=== PATIENT | male | born 1940 | race Caucasian/White ===

== ENCOUNTER 2020-05-31 10:13 | Emergency (ER) | payer MEDICARE ==
[2020-05-31 10:52] LABS: #Basophils 0.1 thou/uL (0.0-0.2); #Lymphocytes 0.4 thou/uL (1.20-3.40); #Neutrophils 14.4 thou/uL (1.40-6.50); %Basophils 0.5 % (0.0-1.0); %Lymphocytes 2.7 % (21.0-51.0); %Monocytes 6.2 % (0.0-10.0); %Neutrophils 90.6 % (42.0-75.0); Mean Corpuscular HGB CONC 34.8 g/dL (32.0-36.0); Mean Corpuscular Hemoglobin 31.2 pg (27.0-31.0); Mean Corpuscular Volume 89.7 fL (78.0-98.0); Mean Platelet Volume 5.9 fL (7.4-10.4); Platelet Count 363 thou/uL (130-400); RBC Distribution Width 12.3 % (11.5-14.5); Red Blood Cell (RBC) Count 5.45 mill/uL (4.70-6.10); White Blood Cell (WBC) Count 15.8 thou/uL (4.8-10.8)
[2020-05-31] MEDS ORDERED: Ondansetron PF 4 MG/2 ML Vial ONE (10:57)
[2020-05-31 11:11] LABS: ALT (SGPT) 23 U/L (8-55); AST (SGOT) 19 U/L (5-34); Albumin 4.2 g/dL (3.4-4.8); Alkaline Phosphatase 51 U/L (40-110); Anion Gap 24 mmol/L (10-20); BUN (Urea Nitrogen) 45 mg/dL (8.4-25.7); Bilirubin, Total 0.7 mg/dL (0.2-1.2); Calc. Creatinine Clearance 0 mL/min (70-130); Calcium 8.9 mg/dL (7.8-10.44); Carbon Dioxide 17 mmol/L (23-31); Chloride 105 mmol/L (98-107); Globulin 2.9 g/dL (2.4-3.5); Glucose 168 mg/dL (83-110); Lipase 13 U/L (8-78); Potassium 4.5 mmol/L (3.5-5.1); Protein, Total 7.1 g/dL (5.8-8.1); Sodium 141 mmol/L (136-145)
[2020-05-31 11:22] LABS: Base Excess-Venous -8.7 mmol/L (-2.0 to 3.0); Bicarbonate (HCO3v) 17.5 mmol/L (22.0-28.0); CO2 Tension (PvCO2) 37.9 mmHg (42.0-51.0); Calcium, Ionized 0.96 mmol/L (1.15-1.33); Chloride 111 mmol/L (98-107); Hemoglobin - Calc 13.5 g/dL (14.0-18.0); Potassium 3.4 mmol/L (3.5-5.1); Sodium 142 mmol/L (138-145); T. Carbon Dioxide 18.6 mmol/L (22.0-28.0); vO2 Saturation-calc 99.7 % (60.0-85.0)
[2020-05-31] MEDS ORDERED: Ciprofloxacin 500 MG TAB ONE (12:00)
[2020-05-31 12:35] LABS: Lactic Acid 5.9 mmol/L (0.5-2.2)
[2020-05-31] MEDS ORDERED: Morphine 4 MG/ML VIAL ONE (12:58)
[2020-05-31] MEDS ORDERED: metroNIDAZOLE 250 MG TAB ONE (13:22)
== END 2020-05-31 14:15 | disposition short-term general hospital (02) ==
LOC: BURERS 10:13
DX: A05.9 Bacterial foodborne intoxication, unspecified (principal); E87.2 Acidosis; I10 Essential (primary) hypertension; E11.9 Type 2 diabetes mellitus without complications; K21.9 Gastro-esophageal reflux disease without esophagitis; Z79.899 Other long term (current) drug therapy; Z79.84 Long term (current) use of oral hypoglycemic drugs; Z79.891 Long term (current) use of opiate analgesic
CPT/HCPCS: 80053; 82330; 82803; 83605; 83690; 85025; 87045; 87046; 87324; 87427; 87449; 93005; 96374; J2270; J2405